=== PATIENT | female | born 1955 | race Caucasian/White ===

== ENCOUNTER 2016-06-08 10:46 | Day surgery (SDC) | payer MEDICAID ==
[~2016-06-08 10:46] MED LIST: CHLORHEXIDINE GLUC HIBICLENS 118 ML BTL TP ONE; ROPIVACAINE HCL 150 MG/30 ML INJ ONE; ceFAZolin 2 GM in D5W 100 ML IV ONE; clonIDINE 1 MG/10 ML VIAL EP ONE
[2016-06-08] MEDS ORDERED: ONDANSETRON 4 MG/2 ML VIAL IVP ONE (11:30)
[2016-06-08] MEDS ORDERED: fentaNYL 100 MCG/2 ML INJ ONE ×2 (11:43→14:55)
[2016-06-08] MEDS ORDERED: LR 1,000 ML IV ONE (11:44)
[2016-06-08] MEDS ORDERED: MIDAZOLAM 2 MG/2 ML VIAL ONE ×4 (11:44→12:17)
[2016-06-08] MEDS ORDERED: FAMOTIDINE 20 MG TAB PO ONE (12:00)
[2016-06-08] MEDS ORDERED: CEFAZOLIN 2 GM/DEXTROSE/100 ML BAG IV ONE (12:04)
[2016-06-08] MEDS ORDERED: BUPIVACAINE 0.5% 30 ML SDV ONE (12:08)
[2016-06-08] MEDS ORDERED: SKIN ADHESIVE (DERMABOND) 1 EACH TP ONE (12:08)
[2016-06-08] MEDS ORDERED: SCOPOLAMINE HYDROBROMIDE 1.5 MG PATCH TD ONE (12:21)
[2016-06-08] MEDS ORDERED: PROPOFOL 200 MG/20 ML VIAL ONE ×2 (12:25→13:18)
[2016-06-08] MEDS ORDERED: ROPIVACAINE 0.2% 550 MG in WATER FOR INJECTION,STERILE 275 ML, PUMP SET 1 EA NB SCH (12:30)
[2016-06-08] MEDS ORDERED: SUCCINYLCHOLINE CHLORIDE*ANESTHESIA ONLY*200 MG/10 ML SYR IVP ONE (12:36)
[2016-06-08] MEDS ORDERED: PHENYLEPHRINE HCL 100 MCG/ML SYR ONE (13:11)
[2016-06-08] MEDS ORDERED: epHEDrine SULFATE 10 MG/ML SYR ONE ×2 (13:11)
[2016-06-08] MEDS ORDERED: ONDANSETRON 4 MG/2 ML VIAL ONE (13:12)
[2016-06-08] MEDS ORDERED: DEXAMETHASONE 4 MG/ML VIAL ONE ×2 (13:12)
--- NOTE | 2016-06-08 23:22 | GOP ---
[f rep st] OPERATIVE REPORT DATE OF OPERATION: 06/08/2016 SURGEON: Lui Zuniga MD CONTRACT SHELTERED WORKSHOP SUPERVISOR: Jayme Levy SA. ANESTHESIA: General with indwelling popliteal block. PREOPERATIVE DIAGNOSIS: Left foot deformity with hallux valgus, mid foot arthritis, 2nd hammertoe, and pes planovalgus deformity. POSTOPERATIVE DIAGNOSIS: Left foot deformity with hallux valgus, mid foot arthritis, 2nd hammertoe, and pes planovalgus deformity. PROCEDURE PERFORMED: 1. Left medial displacement calcaneal osteotomy. 2. Left 1st and 2nd tarsometatarsal fusion. 3. Left intercuneiform fusion. 4. Left distal soft tissue procedure. 5. Left 2nd toe capsulotomy with proximal phalanx condylectomy. 6. Left 2nd metatarsal head microfracture. 7. Left 2nd hammertoe correction. FINDINGS: SPECIMENS: None. ESTIMATED BLOOD LOSS: 10 mL. INDICATIONS: This 60-year-old female with severe left foot deformity, who failed nonoperative management. Counseled on risks and benefits to the above intervention. She elected to proceed. Informed consent was obtained. All questions were answered. She was marked preoperatively. DESCRIPTION OF PROCEDURE: She was given a block per Anesthesia, taken to the operating suite. 2 g of Ancef were administered. Sterile prep and drape in normal fashion. Time-out was performed, verifying site, side, location in agreement with the team. The procedure was begun after Esmarch utilization, tourniquet was inflated to 250 mmHg. I made an incision over the lateral heel and dissected down to the calcaneus. I cut this with a saw. Displaced this medially and pinned this. Checked this fluoroscopically and placed 2 compression screws across this, achieving good compression of the bone. I turned my attention next and exposed the midfoot through a longitudinal incision over the midfoot. Protected neurovascular structures. Exposed the 1st and 2nd tarsometatarsal joints. Intercuneiform joints were quite arthritic , especially the 2nd TMT joint. I then prepared these joints with a combination of saw, chisel rongeur, and bur. The distal wounds were exposed, then I exposed the medial eminence. Isolated the capsule and opened this longitudinally and removed redundant capsule. Performed medial eminence resection. I then made incision in the 1st webspace and performed distal soft tissue procedure, cut into the adventitia, removing the adductor tendon, freeing the sesamoid and pie-crusting the capsule, and manually displacing this into varus. I then exposed the 2nd metatarsophalangeal joint into the 2nd webspace. Released the tissues on the lateral side to help correct her deformity. Did a cheilectomy of the overgrown phalanx and extra bone. Performed a microfracture of the head with a K-wire. I then exposed the 2nd toe PIP joint sharply and resected this. I began correcting her deformity at the midfoot, placed intercuneiform screw after clamping this, achieved compression there, and then a screw across the Lisfranc joint to achieve compression in this area. I was then able to place a screw across the 1st tarsometatarsal joint to help correct the deformity and achieve compression in this area. I then selected a plate and contoured this. I placed a locking plate over this entire construct to help hold this in place. I then turned my attention to the forefoot. Held the 2nd toe into corrected position and pinned this over the K-wire from first antegrade and then retrograde across the MTP, achieving good correction of this. I then performed the remainder of the soft tissue procedure with 1-0 Vicryl, tightening the medial capsule while holding the toe in a reduced position. This stayed in good position without any help after I was done with this. The wounds were thoroughly irrigated and closed with 2-0 Vicryl and 3-0 nylon. She was placed in sterile dressing and splint, taken to PACU in stable condition. IMPLANTS: Arthrex midfoot plate and headless compression screws and K-wire. COMPLICATIONS: None. DRAINS: None. CONDITION: Stable. /[id number]/MODL MTDD
== END 2016-06-08 17:35 | disposition home or self-care (01) ==
LOC: FSGY 10:46
PROVIDERS: ATTEND Orthopaedic Surgery
PROC: 0SGJ04Z Fusion of Left Tarsal Joint with Internal Fixation Device, Open Approach (ICD-10-PCS; principal; 2016-06-08 12:30)
PROC: 0SGQ04Z Fusion of Left Toe Phalangeal Joint with Internal Fixation Device, Open Approach (ICD-10-PCS; principal; 2016-06-08 12:30)
DX: M20.12 Hallux valgus (acquired), left foot (principal); M20.42 Other hammer toe(s) (acquired), left foot; M21.42 Flat foot [pes planus] (acquired), left foot; E03.9 Hypothyroidism, unspecified; Z85.3 Personal history of malignant neoplasm of breast; M19.072 Primary osteoarthritis, left ankle and foot
CPT/HCPCS: 28285; 28735; C1769; C1713; J0330; J0690; J0735; J1100; J2250; J2370; J2405; J2704; J2795; J3010

== ENCOUNTER 2016-12-10 14:32 | Day surgery (SDC) | payer MEDICAID ==
[2016-12-10] MEDS ORDERED: LR 1,000 ML IV ONE (15:20)
[2016-12-10] MEDS ORDERED: LIDOCAINE 1% 2 ML INJ ID PRN (15:20)
[2016-12-10] MEDS ORDERED: fentaNYL 100 MCG/2 ML INJ IVP PRN (16:57)
[2016-12-10] MEDS ORDERED: LR 500 ML IV PRN (16:57)
[2016-12-10] MEDS ORDERED: NALOXONE HCL 0.4 MG/ML INJ IVP PRN (16:57)
[2016-12-10] MEDS ORDERED: ONDANSETRON 4 MG/2 ML VIAL IVP PRN (16:57)
--- NOTE | 2016-12-10 16:57 | PDANEPAE ---
ANE Past Medical History - Cardiovascular History Hx Hypertension: No Hx Arrhythmias: No Hx Chest Pain: No Hx Coronary Artery / Peripheral Vascular Disease: No Hx CHF / Valvular Disease: No Hx Palpitations: No - Pulmonary History Hx COPD: No Hx Asthma/Reactive Airway Disease: No Hx Recent Upper Respiratory Infection: No Hx Oxygen in Use at Home: No Hx Sleep Apnea: No Sleep Apnea Screening Result - Last Documented: Negative - Neurologic History Hx Cerebrovascular Accident: No Hx Seizures: No Hx Dementia: No - Endocrine History Hx Diabetes: No Endocrine History Comment: HYPOTHYROIDISM - Renal History Hx Renal Disorders: No - Liver History Hx Hepatic Disorders: No Hepatic History Comment: APPENDECTOMY - Neurological & Psychiatric Hx Hx Neurological and Psychiatric Disorders: No - Cancer History Hx Cancer: No Cancer History Comment: LEUKEMIA (AML)- CHEMO/ RAD/ BONE MARROW TRANSPLANT ( GRAFT VS HOST DX- IMMUNOSUPPRESSIVE [place] FOLLOWING) 1989. BREAST CANCER DX 06/2015 - Congenital Disorder History Hx Congenital Disorders: No - GI History Hx Gastrointestinal Disorders: Yes Gastrointestinal History Comment: ESOPHAGEAL STRICTURES. GERD. DIFFICULTY SWALLOWING. RESULTING FROM TOTAL BODY RADIATION - Other Health History Other Health History: TIGHTNESS IN JOINTS - Chronic Pain History Chronic Pain: No - Surgical History Prior Surgeries: L foot-bunion,achiles tendon 06-08-16;. 05/22/16 IMPLANT EXCHANGE WITH MAXHIMER. 04/27/16 EGD WITH DILATION WITH RAJU. RECONSTRUCTION X4-5 PROCEDURES. ADAN MASTECTOMY 07/2015. APPENDECTOMY 2013. ENDOSCOPY. BONE MARROW TRANSPLANT 1989. WISDOM TEETH EXTRACTION ANE Review of Systems - Exercise capacity METS (RN): 4 METS ANE Patient History - Allergies Allergies/Adverse Reactions: droperidol [From Inapsine] Allergy (Verified 11/21/16 11:41) Other-Enter Comments prochlorperazine edisylate [From Compazine] Allergy (Verified 11/21/16 11:41) Other-Enter Comments prochlorperazine maleate [From Compazine] Allergy (Verified 11/21/16 11:41) Other-Enter Comments - Home Medications Home Medications: Omeprazole [Prilosec] 06/21/15 [Last Taken 12/10/16 08:00] Thyroid,Pork [[place] Thyroid] 06/21/15 [Last Taken 12/10/16 08:00] - NPO status NPO Since - Liquids (Date): 12/10/16 NPO Since - Liquids (Time): 10:00 NPO Since - Solids (Date): 12/09/16 NPO Since - Solids (Time): 22:00 - Anes Hx Anes Hx: post operative nausea - Smoking Hx Smoking Status: Former smoker - Family Anes Hx Family Hx Anesthesia Complications: NONE ANE Labs/Vital Signs - Vital Signs Blood Pressure: 156/98 Heart Rate: 76 Respiratory Rate: 15 O2 Sat (%): 93 Height: 157.48 cm Weight: 56.699 kg ANE Physical Exam - Airway Mallampati Score: Class 1 Mouth exam: normal dental/mouth exam - Pulmonary Pulmonary: no respiratory distress, no rales or rhonchi - Cardiovascular Cardiovascular: regular rate and rhythym, no murmur, rub, or gallop - ASA Status ASA Status: II ANE Anesthesia Plan Anesthesia Plan: MAC
--- NOTE | 2016-12-10 16:59 | PDGENHP ---
History & Physical Chief Complaint: dysphagia History of Present Illness: 61 year old female with hx AML, breast cancer, known esophageal stricture presents for evaluation of dysphagia. Pertinent Past, Social, Family History: PMHx: AML. FaMHx: pheo Relevant Physical Exam: HEENT: anicteric sclera. CV: RRR +s1s2. Lungs: CTAB. Abd: soft, nt, + BS Cardiorespiratory Assessment: asa 2
--- NOTE | 2016-12-10 17:04 | POSTOPPROG ---
Post Op Note Date of Operation: 12/10/16 Surgeon: Jake Hope Anesthesia: IV Sedation Pre-op Diagnosis: dysphagia Post-op Diagnosis: esopahgeal stricture, irreg Z-line, gastric polyps Indication: dysphagia Procedure: EGD with bx, dilation Findings: hh, gastritis, esop sx Inf/Abcess present in the surg proc area at time of surgery?: No Specimen(s): mid esophagus, ge jxn, polyps
[2016-12-10] MEDS ORDERED: INDOMETHACIN 50 MG SUPP PR PRN (17:29)
[2016-12-10] MEDS ORDERED: NS 500 ML IV SCH (17:30)
[2016-12-10] MEDS ORDERED: PROPOFOL/EMULSION 500 MG/50 ML BOTTLE IV ONE (17:36)
--- NOTE | 2016-12-10 17:38 | POSTANESTH ---
Post Anesthetic Evaluation Cardiovascular Status: Similar to Pre-Op Cond Respiratory Status: Normal, Stable, Similar to Pre-op Cond. Level of Consciousness/Mental Status: Can Participate in Eval, Alert and Oriented Pain Control: Adequate, Prn Tx Ordered Nausea/Vomiting Control: Adequate, Prn Tx Ordered Complications Possibly Related to Anesthesia: None Noted
[2016-12-10 17:40] VITALS: BP 157/102; PULSE 87; TEMP 97.7
[2016-12-10 17:55] VITALS: RESP 19
[2016-12-10 18:23] VITALS: O2SAT 95
--- NOTE | 2016-12-11 04:45 | GPN ---
[f rep st] PROCEDURE NOTE DATE OF PROCEDURE: 12/10/2016 PROCEDURE: Esophagogastroduodenoscopy with dilation, biopsy. INDICATION: The patient is a 61-year-old female with a known esophageal stricture who presents with complaints of persistent dysphagia. She is here for further evaluation. CONSENT: Risks, benefits, and alternatives of the procedure were discussed in great detail with the patient. Risk of infection, bleeding, perforation, sedation were discussed. All questions answere d, and informed consent obtained. MEDICATIONS: Propofol. Please see Anesthesia record for details. ESTIMATED BLOOD LOSS: Insignificant. ESOPHAGOGASTRODUODENOSCOPY EXAMINATION: The Olympus upper endoscope was introduced via the mouth an d advanced to the esophagus. The proximal to mid esophagus was normal in appearance. The patient w as noted to have an irregular Z-line as well as columnar appearing epithelium extending into the tub ular esophagus consistent with Byrd esophagus. Biopsies were taken. A large hiatal hernia was n oted. On the way out, at the gastroesophageal junction, a benign-appearing intrinsic stricture was noted. It was dilated with a 12-15 and then 15 mm balloon. Mild heme noted. The stomach was entered and closely examined. Included retroflexed view angles of the cardia and fu ndus. Multiple sessile polyps were noted around the greater curvature and biopsy were taken. Duode nal bulb and second portion of the duodenum were normal in appearance. IMPRESSION: 1. Dilation of a benign intrinsic stricture at gastroesophageal junction. 2. Biopsies taken for eosinophilic esophagitis. 3. Gastric polyp status post biopsy. RECOMMENDATIONS: 1. Follow up on biopsy results. 2. PPI therapy twice a day. /[id number]/MODL
== END 2016-12-10 18:10 | disposition home or self-care (01) ==
LOC: F3NOP 14:32
PROVIDERS: ATTEND Internal Medicine Gastroenterology
PROC: 0D748ZZ Dilation of Esophagogastric Junction, Via Natural or Artificial Opening Endoscopic (ICD-10-PCS; principal; 2016-12-10 16:00)
PROC: 0DB38ZX Excision of Lower Esophagus, Via Natural or Artificial Opening Endoscopic, Diagnostic (ICD-10-PCS; principal; 2016-12-10 16:00)
PROC: 0DB28ZX Excision of Middle Esophagus, Via Natural or Artificial Opening Endoscopic, Diagnostic (ICD-10-PCS; principal; 2016-12-10 16:00)
PROC: 0DB68ZX Excision of Stomach, Via Natural or Artificial Opening Endoscopic, Diagnostic (ICD-10-PCS; principal; 2016-12-10 16:00)
DX: K22.2 Esophageal obstruction (principal); K31.7 Polyp of stomach and duodenum
CPT/HCPCS: C1726; J2310; J2704

== ENCOUNTER 2017-07-23 11:31 | Day surgery (SDC) | payer MEDICAID ==
[2017-07-23] MEDS ORDERED: BUPIVACAINE 0.5% 10 ML SDV ONE ×3 (11:55→12:24)
[2017-07-23] MEDS ORDERED: LR 1,000 ML IV ONE (12:02)
[2017-07-23] MEDS ORDERED: LIDOCAINE 1% 2 ML INJ ID PRN (12:02)
[2017-07-23 12:25] VITALS: PULSE 72
[2017-07-23] MEDS ORDERED: MIDAZOLAM 2 MG/2 ML VIAL IVP ONE (13:14)
[2017-07-23] MEDS ORDERED: ceFAZolin 2 GM/SWFI 2 GM/20 ML SYR IVP ONE (13:17)
--- NOTE | 2017-07-23 13:18 | PDHPUP ---
History & Physical Update H&P update statement: This history and physical update is based on an assessment of the patient which was completed after admission or registration (within 24 hours), but prior to the surgery/procedure. H&P update: H&P reviewed & patient examined, no change in patient's condition since H&P completed
--- NOTE | 2017-07-23 13:20 | PDANEPAE ---
ANE Past Medical History - Cardiovascular History Hx Hypertension: No Hx Arrhythmias: No Hx Chest Pain: No Hx Coronary Artery / Peripheral Vascular Disease: No Hx CHF / Valvular Disease: No Hx Palpitations: No - Pulmonary History Hx COPD: No Hx Asthma/Reactive Airway Disease: No Hx Recent Upper Respiratory Infection: No Hx Oxygen in Use at Home: No Hx Sleep Apnea: No Sleep Apnea Screening Result - Last Documented: Negative - Neurologic History Hx Cerebrovascular Accident: No Hx Seizures: No Hx Dementia: No - Endocrine History Hx Diabetes: No Endocrine History Comment: HYPOTHYROIDISM - Renal History Hx Renal Disorders: No - Liver History Hx Hepatic Disorders: No Hepatic History Comment: APPENDECTOMY - Neurological & Psychiatric Hx Hx Neurological and Psychiatric Disorders: No - Cancer History Hx Cancer: No Cancer History Comment: LEUKEMIA (AML)- CHEMO/ RAD/ BONE MARROW TRANSPLANT ( GRAFT VS HOST DX- IMMUNOSUPPRESSIVE [place] FOLLOWING) 1989. BREAST CANCER DX 06/2015 - Congenital Disorder History Hx Congenital Disorders: No - GI History Hx Gastrointestinal Disorders: Yes Gastrointestinal History Comment: LACK OF PERISTALSIS IN ESOPHAGUS. ESOPHAGEAL STRICTURES. GERD. DIFFICULTY SWALLOWING. RESULTING FROM TOTAL BODY RADIATION - Other Health History Other Health History: TIGHTNESS IN JOINTS - Chronic Pain History Chronic Pain: Yes (LT FOOT POST BUNION SURG 2015) - Surgical History Prior Surgeries: EGD/ESOPHAGEAL DILATION 12/10/16. L foot-bunion,achiles tendon 06-08-16. 05/22/16 IMPLANT EXCHANGE WITH MAXHIMER. 04/27/16 EGD WITH DILATION WITH RAJU. RECONSTRUCTION X4-5 PROCEDURES. ADAN MASTECTOMY 07/2015. APPENDECTOMY 2013. ENDOSCOPY. BONE MARROW TRANSPLANT 1989. WISDOM TEETH EXTRACTION ANE Review of Systems Review of Systems: - Exercise capacity METS (RN): 4 METS ANE Patient History - Allergies Allergies/Adverse Reactions: droperidol [From Inapsine] Allergy (Verified 07/12/17 12:12) SEIZURES prochlorperazine edisylate [From Compazine] Allergy (Verified 07/12/17 12:12) SEIZURES prochlorperazine maleate [From Compazine] Allergy (Verified 07/12/17 12:12) SEIZURES - Home Medications Home Medications: Omeprazole [Prilosec] BID 06/21/15 [Last Taken 07/22/17] Thyroid,Pork [[place] Thyroid] BID 06/21/15 [Last Taken 07/23/17 08:00] Herbals/Supplements -Info Only DAILY 07/12/17 [Last Taken 07/22/17] - NPO status NPO Since - Liquids (Date): 07/23/17 NPO Since - Liquids (Time): 09:30 NPO Since - Solids (Date): 07/22/17 NPO Since - Solids (Time): 18:00 - Smoking Hx Smoking Status: Former smoker - Family Anes Hx Family Hx Anesthesia Complications: NONE ANE Labs/Vital Signs - Vital Signs Blood Pressure: 160/88 Heart Rate: 72 Respiratory Rate: 16 O2 Sat (%): 97 Height: 157.48 cm Weight: 61.235 kg ANE Physical Exam - Airway Neck exam: FROM Mallampati Score: Class 2 Mouth exam: normal dental/mouth exam - Pulmonary Pulmonary: no respiratory distress - Cardiovascular Cardiovascular: regular rate and rhythym - ASA Status ASA Status: II ANE Anesthesia Plan Anesthesia Plan: GA w LMA Regional Anesthesia: popliteal SNB
[2017-07-23] MEDS ORDERED: fentaNYL 250 MCG/5 ML INJ ONE (13:43)
[2017-07-23] MEDS ORDERED: PROPOFOL 200 MG/20 ML VIAL ONE (13:44)
[2017-07-23] MEDS ORDERED: SUGAMMADEX SODIUM 200 MG/2 ML VIAL IVP ONE (14:29)
--- NOTE | 2017-07-23 14:44 | POSTOPPROG ---
Post Op Note Date of Operation: 07/23/17 Surgeon: Lui Zuniga Anesthesia: GET(General Endotracheal) Pre-op Diagnosis: left 2nd toe deformity Post-op Diagnosis: same Indication: above Procedure: amputation L 2nd toe Inf/Abcess present in the surg proc area at time of surgery?: No EBL: Minimal
[2017-07-23] MEDS ORDERED: HYDROCODONE/APAP 5/325 TAB PO PRN (14:54)
[2017-07-23] MEDS ORDERED: fentaNYL 100 MCG/2 ML INJ IVP PRN (14:54)
[2017-07-23] MEDS ORDERED: ONDANSETRON 4 MG/2 ML VIAL IVP PRN (14:54)
[2017-07-23] MEDS ORDERED: LR 500 ML IV PRN (14:54)
[2017-07-23] MEDS ORDERED: NALOXONE HCL 0.4 MG/ML INJ IVP PRN (14:54)
--- NOTE | 2017-07-23 14:55 | POSTANESTH ---
Post Anesthetic Evaluation Cardiovascular Status: Normal, Stable Respiratory Status: Normal, Stable Level of Consciousness/Mental Status: Can Participate in Eval Pain Control: Adequate, Prn Tx Ordered Nausea/Vomiting Control: Adequate, Prn Tx Ordered Complications Possibly Related to Anesthesia: None Noted
[2017-07-23 15:19] VITALS: TEMP 97.7
--- NOTE | 2017-07-23 15:51 | GOP ---
[f rep st] OPERATIVE REPORT DATE OF OPERATION: 07/23/2017 SURGEON: Lui Zuniga MD DIET TECHNICIAN REGISTERED: None. 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 POSTOPERATIVE DIAGNOSIS: Left 2nd toe crossover deformity. PROCEDURE PERFORMED: Left 2nd toe amputation with disarticulation at metatarsophalangeal joint. FINDINGS: SPECIMENS: The toe for permanent path. ESTIMATED BLOOD LOSS: 10 mL. INDICATIONS: This is a 61-year-old female, appears to have done extensive left foot surgery. She re curred and developed a significant crossover toe deformity of the 2nd toe. She does not have much pa in in the rest of her foot and the 2nd toe is bothering her a lot in shoe wear. She had a similar ty pe amputation on the other side and has done well. She requests the 2nd toe be removed. I discussed all the options with her including other revisions, foot surgery, and she elected to proceed with to e amputation. Discussed risks of phantom pain, further recurrence of her bunion, need for further op eration, nerve pain, infection, wound complications; she said to proceed. Informed consent obtained. All questions answered preoperatively. DESCRIPTION OF PROCEDURE: She was taken to the operative suite, sterilely prepped and draped in a st erile fashion. Time-out was performed verifying the site, side, location, and there was agreement wi th the team. Popliteal block administered per Anesthesia and 2 g of Ancef. Esmarch tourniquet was u tilized. I did a circumferential amputation of the toe, leaving extra skin for the flap. Dissected down and disarticulated the toe at the MTP. I then released the tourniquet and obtained hemostasis, cauterizing the digital vessels. I then thoroughly irrigated this and closed the toe with 2-0 PDS an d 3-0 nylon. She was dressed in a sterile dressing. Taken to PACU in stable condition. COMPLICATIONS: None. DRAINS: None. CONDITION: Stable. /[id number]/MODL
[2017-07-23 16:14] VITALS: RESP 16
[2017-07-23 17:02] VITALS: BP 141/78; O2SAT 95
== END 2017-07-23 16:45 | disposition home or self-care (01) ==
LOC: FSGY 11:31
PROVIDERS: ATTEND Orthopaedic Surgery
PROC: 0Y6S0Z0 Detachment at Left 2nd Toe, Complete, Open Approach (ICD-10-PCS; principal; 2017-07-23 13:30)
DX: M20.5X2 Other deformities of toe(s) (acquired), left foot (principal); M20.12 Hallux valgus (acquired), left foot; M20.42 Other hammer toe(s) (acquired), left foot; M13.872 Other specified arthritis, left ankle and foot; E03.9 Hypothyroidism, unspecified; Z85.3 Personal history of malignant neoplasm of breast; Z85.6 Personal history of leukemia; Z87.891 Personal history of nicotine dependence; Z90.13 Acquired absence of bilateral breasts and nipples; Z89.421 Acquired absence of other right toe(s); Z94.81 Bone marrow transplant status
CPT/HCPCS: J0690; J2250; J2704; J3010

== ENCOUNTER 2017-09-27 06:07 | Day surgery (SDC) | payer MEDICAID ==
[2017-09-27] MEDS ORDERED: LR 1,000 ML IV ONE (06:16)
[2017-09-27] MEDS ORDERED: BUPIVACAINE 0.5% 30 ML SDV ONE (06:57)
[2017-09-27] MEDS ORDERED: ceFAZolin 2 GM/SWFI 2 GM/20 ML SYR IVP ONE (07:02)
[2017-09-27] MEDS ORDERED: PROPOFOL/EMULSION 500 MG/50 ML BOTTLE IV ONE (07:02)
[2017-09-27] MEDS ORDERED: fentaNYL 100 MCG/2 ML INJ ONE (07:03)
[2017-09-27] MEDS ORDERED: MIDAZOLAM 2 MG/2 ML VIAL IVP ONE (07:05)
[2017-09-27] MEDS ORDERED: MIDAZOLAM 2 MG/2 ML VIAL ONE (07:12)
--- NOTE | 2017-09-27 07:15 | PDANEPAE ---
ANE History of Present Illness 62 year old woman for amputation of Right 2nd toe, partial, and ablation of 3rd toe nail. History of Leukemia, gerd and hypothyroidism. ANE Past Medical History - Cardiovascular History Hx Hypertension: No Hx Arrhythmias: No Hx Chest Pain: No Hx Coronary Artery / Peripheral Vascular Disease: No Hx CHF / Valvular Disease: No Hx Palpitations: No - Pulmonary History Hx COPD: No Hx Asthma/Reactive Airway Disease: No Hx Recent Upper Respiratory Infection: No Hx Oxygen in Use at Home: No Hx Sleep Apnea: No Sleep Apnea Screening Result - Last Documented: Negative - Neurologic History Hx Cerebrovascular Accident: No Hx Seizures: No Hx Dementia: No - Endocrine History Hx Diabetes: No Endocrine History Comment: HYPOTHYROIDISM - Renal History Hx Renal Disorders: No - Liver History Hx Hepatic Disorders: No Hepatic History Comment: APPENDECTOMY - Neurological & Psychiatric Hx Hx Neurological and Psychiatric Disorders: No - Cancer History Hx Cancer: No Cancer History Comment: LEUKEMIA (AML)- CHEMO/ RAD/ BONE MARROW TRANSPLANT ( GRAFT VS HOST DX- IMMUNOSUPPRESSIVE [place] FOLLOWING) 1989. BREAST CANCER DX 06/2015 - Congenital Disorder History Hx Congenital Disorders: No - GI History Hx Gastrointestinal Disorders: Yes Gastrointestinal History Comment: LACK OF PERISTALSIS IN ESOPHAGUS. ESOPHAGEAL STRICTURES. HIATAL HERNIA. GERD. DIFFICULTY SWALLOWING. RESULTING FROM TOTAL BODY RADIATION - Other Health History Other Health History: TIGHTNESS IN JOINTS affecting knees. DEFORMITY R 2ND TOE; . NEED FOR TOENAIL ABLATION R 4TH TOE. SHINGLES FROM BONE MARROW TRANSPLANT . ONGOING PAIN L FOOT - Chronic Pain History Chronic Pain: Yes (LT FOOT POST BUNION SURG 2015) - Surgical History Prior Surgeries: L 2nd toe [id number];. EGD/ESOPHAGEAL DILATION . L foot-bunion,achiles tendon 06-08-16. 05/22/16 IMPLANT EXCHANGE WITH MAXHIMER. 04/27/16 EGD WITH DILATION WITH RAJU. RECONSTRUCTION X4-5 PROCEDURES. ADAN MASTECTOMY 07/2015. APPENDECTOMY 2013. ENDOSCOPY. BONE MARROW TRANSPLANT 1989. WISDOM TEETH EXTRACTION ANE Review of Systems Review of systems is: negative Review of Systems: - Exercise capacity METS (RN): 4 METS ANE Patient History - Allergies Allergies/Adverse Reactions: droperidol [From Inapsine] Allergy (Verified 09/04/17 11:11) SEIZURES prochlorperazine edisylate [From Compazine] Allergy (Verified 09/04/17 11:11) SEIZURES prochlorperazine maleate [From Compazine] Allergy (Verified 09/04/17 11:11) SEIZURES - Home Medications Home Medications: Omeprazole [Prilosec] BID 06/21/15 [Last Taken 09/27/17] Thyroid,Pork [[place] Thyroid] BID 06/21/15 [Last Taken 09/26/17] Herbals/Supplements -Info Only DAILY 07/12/17 [Last Taken 09/20/17] Benadryl 09/04/17 [Last Taken 09/26/17] - NPO status NPO Since - Liquids (Date): 09/27/17 NPO Since - Liquids (Time): 03:00 NPO Since - Solids (Date): 09/26/17 NPO Since - Solids (Time): 18:30 - Smoking Hx Smoking Status: Former smoker - Family Anes Hx Family Hx Anesthesia Complications: NONE ANE Labs/Vital Signs - Vital Signs Blood Pressure: 161/92 Heart Rate: 85 Respiratory Rate: 14 O2 Sat (%): 96 Height: 157.48 cm Weight: 56.699 kg ANE Physical Exam - Airway Neck exam: FROM Mallampati Score: Class 2 Mouth exam: normal dental/mouth exam - Pulmonary Pulmonary: no respiratory distress - Cardiovascular Cardiovascular: regular rate and rhythym - ASA Status ASA Status: II ANE Anesthesia Plan Anesthesia Plan: MAC
[2017-09-27] MEDS ORDERED: DEXAMETHASONE 4 MG/ML VIAL IVP PRN (07:29)
[2017-09-27] MEDS ORDERED: ALBUTEROL 3 ML DEYVIAL IH PRN (07:29)
[2017-09-27] MEDS ORDERED: oxyCODONE IR 5 MG TAB PO PRN (07:29)
[2017-09-27] MEDS ORDERED: HYDROCODONE/APAP 5/325 TAB PO PRN (07:29)
[2017-09-27] MEDS ORDERED: LABETALOL HCL 5 MG/ML 20 ML MDV IVP PRN (07:29)
[2017-09-27] MEDS ORDERED: ONDANSETRON 4 MG/2 ML VIAL IVP PRN (07:29)
[2017-09-27] MEDS ORDERED: NALOXONE HCL 0.4 MG/ML INJ IVP PRN (07:29)
[2017-09-27] MEDS ORDERED: fentaNYL 100 MCG/2 ML INJ IVP PRN (07:29)
--- NOTE | 2017-09-27 08:04 | POSTOPPROG ---
Post Op Note Date of Operation: 09/27/17 Surgeon: Lui Zuniga Auto Body Worker: NONE Anesthesiologist: samantha Anesthesia: IV Sedation Pre-op Diagnosis: toedeformities Post-op Diagnosis: same Procedure: R 2nd toe ap, 4th toe nail ablation Inf/Abcess present in the surg proc area at time of surgery?: Yes Depth: Superfical (Skin SQ) (4th toe nail oncyomycosis)
[2017-09-27 08:43] VITALS: BP 136/66
--- NOTE | 2017-09-27 08:46 | GOP ---
[f rep st] OPERATIVE REPORT DATE OF OPERATION: 09/27/2017 SURGEON: Lui Zuniga MD TRANSMITTER CHIEF: None. PREOPERATIVE DIAGNOSIS: Right 2nd toe deformity, right 4th toenail onychomycosis. POSTOPERATIVE DIAGNOSIS: Right 2nd toe deformity, right 4th toenail onychomycosis. PROCEDURE PERFORMED: 1. Right 2nd toe amputation at proximal interphalangeal joint disarticulation. 2. Right 4th toenail removal and toenail ablation with removal of dermal matrix. FINDINGS: SPECIMENS: None. ESTIMATED BLOOD LOSS: 10 mL. INDICATIONS: A 62-year-old female previously operated on. She had severe toe deformities. She elec destiny for the amputation rather than any attempted salvage which would be a much bigger procedure. I f elt this would leave her with good function. We agreed to take care of the severe toe deformity of t he right toenail with onychomycosis at the same time with an ablation and she understood that the montez l would not grow back. Informed consent obtained. All questions answered. She was marked preoperat ively. We discussed risks of nerve injury, continued pain, wound complications, the fact that she wo uld not have a toenail, need for further surgery, pain, nerve injury, infection, blood clot, and anes thetic complications. DESCRIPTION OF PROCEDURE: She was taken to the operative suite, sterilely prepped and draped in norm al fashion. Time-out was performed verifying site, side, location. Agreement with the team. She wa s given MAC anesthesia. Performed a digital block, 10 cc Marcaine in the 4th and 2nd toe. Used an a dditional 5 later in the case in the 2nd toe. The procedure was begun on the 4th toe. I elevated th e toenail and removed this. Cleaned this area off. Changed gloves and instruments and then made 2 i ncisions at the base of the nail fold. Elevated this and removed the dermal matrix entirety with a k nife and a curette. Thoroughly irrigated this, closed this with 4-0 chromic. Changed instruments an d gloves. I then worked on the 2nd toe, shirley out the outline of amputation. Made the skin incision and disarticulated the PIP joint sharply. I then released the tourniquet, which was an ankle Esmarch tourniquet. We obtained hemostasis. Closure with 3-0 Monocryl and 4-0 nylon, and this was in a goo d position, stable and good closure. She has good capillary refill. She was placed in sterile dress ing, taken to PACU in stable condition. COMPLICATIONS: None. DRAINS: None. CONDITION: Stable. /[id number]/MODL
== END 2017-09-27 09:01 | disposition home or self-care (01) ==
LOC: FSGY 06:07
PROVIDERS: ATTEND Orthopaedic Surgery
DX: M20.5X1 Other deformities of toe(s) (acquired), right foot (principal); L60.1 Onycholysis; E03.9 Hypothyroidism, unspecified; K21.9 Gastro-esophageal reflux disease without esophagitis; C92.51 Acute myelomonocytic leukemia, in remission; Z85.3 Personal history of malignant neoplasm of breast; Z92.3 Personal history of irradiation; Z87.891 Personal history of nicotine dependence; Z90.13 Acquired absence of bilateral breasts and nipples; Z89.421 Acquired absence of other right toe(s); Z94.81 Bone marrow transplant status
CPT/HCPCS: J0690; J2250; J2704; J3010